=== PATIENT | male | born 1980 | race Hispanic/Latino ===

== ENCOUNTER 2020-08-20 18:58 | Emergency (ER) | payer SELFPAY ==
[~2020-08-20 18:58] MED LIST: Iopamidol 370 76% 100 ML VIAL ONE
[2020-08-20] MEDS ORDERED: Dexamethasone 10 MG/ML VIAL ONE (19:19)
[2020-08-20] MEDS ORDERED: Sodium Chloride 0.9% 1,000 ML ONE ×3 (19:19→22:33)
[2020-08-20] MEDS ORDERED: Ibuprofen 800 MG TAB ONE (19:19)
[2020-08-20] MEDS ORDERED: cefTRIAXone\\ROCEPHIN 2 GM VIAL ONE (19:29)
[2020-08-20] MEDS ORDERED: Sodium Chloride 0.9% 250 ML 250 ML ONE (19:29)
[2020-08-20] MEDS ORDERED: Enoxaparin Sodium 40 MG/0.4 ML SYRINGE ONE (19:29)
[2020-08-20] MEDS ORDERED: Azithromycin 500 MG VIAL ONE (19:29)
[2020-08-20] MEDS ORDERED: Sodium Chloride 0.9% 100 ML ONE (19:29)
[2020-08-20 19:35] LABS: #Basophils 0.2 thou/uL (0.0-0.2); #Eosinphils 0.1 thou/uL (0.0-0.7); #Lymphocytes 0.5 thou/uL (1.20-3.40); #Monocytes 0.7 thou/uL (0.11-0.59); #Neutrophils 17.4 thou/uL (1.40-6.50); %Basophils 0.8 % (0.0-1.0); %Eosinophils 0.3 % (0.0-10.0); %Lymphocytes 2.6 % (21.0-51.0); %Monocytes 3.6 % (0.0-10.0); %Neutrophils 92.7 % (42.0-75.0); Hemoglobin 14.9 g/dL (14.0-18.0); Mean Corpuscular HGB CONC 32.2 g/dL (32.0-36.0); Mean Corpuscular Hemoglobin 28.6 pg (27.0-31.0); Mean Corpuscular Volume 88.9 fL (78.0-98.0); Mean Platelet Volume 7.3 fL (7.4-10.4); Platelet Count 340 thou/uL (130-400); RBC Distribution Width 11.6 % (11.5-14.5); Red Blood Cell (RBC) Count 5.19 mill/uL (4.70-6.10); White Blood Cell (WBC) Count 18.7 thou/uL (4.8-10.8)
--- NOTE | 2020-08-20 19:44 | RAD ---
Portable frontal chest radiograph: 08/20/2020 COMPARISON: None HISTORY: Dyspnea FINDINGS: Extensive confluent interstitial and groundglass opacity noted in the right upper lobe, oralia ateral perihilar regions, and both lung bases. No pneumothorax or large volume pleural effusion. IMPRESSION: Extensive interstitial and groundglass alveolar opacity suspicious for Covid pneumonia.
[2020-08-20 19:48] LABS: ALT (SGPT) 98 U/L (8-55); AST (SGOT) 77 U/L (5-34); Albumin 3.4 g/dL (3.5-5.0); Alkaline Phosphatase 63 U/L (40-110); Anion Gap 14 mmol/L (10-20); BUN (Urea Nitrogen) 29 mg/dL (8.9-20.6); Bilirubin, Total 0.9 mg/dL (0.2-1.2); CK (CPK) 580 U/L (30-200); Calc. Creatinine Clearance 0 mL/min (70-130); Calcium 8.9 mg/dL (7.8-10.44); Carbon Dioxide 20 mmol/L (22-29); Chloride 102 mmol/L (98-107); Globulin 4.4 g/dL (2.4-3.5); Glucose 110 mg/dL (70-105); Potassium 4.3 mmol/L (3.5-5.1); Protein, Total 7.8 g/dL (6.0-8.3); Sodium 132 mmol/L (136-145)
[2020-08-20 20:26] LABS: Bilirubin Small (Negative); Blood, Urine Moderate (Negative); Clarity Clear (Clear); Glucose, Urine (Dipstick) Negative (Negative); Ketone, Urine Negative (Negative); Leukocyte Negative (Negative); Nitrite Negative (Negative); Protein, Urine (Dipstick) 100 mg/dL (Neg-Trace); Specific Gravity, Urine 1.025 (1.005-1.030)
[2020-08-20 20:32] LABS: Bacteria/HPF Rare-Few HPF (None Seen); Mucous/LPF 1+ LPF (<2+); Squamous Epithelial 0-3 HPF (0-3); WBC/HPF None Seen HPF (0-3)
--- NOTE | 2020-08-20 21:05 | CT ---
CT angiogram chest: 08/20/2020 COMPARISON: None HISTORY: Congestion, shortness of breath, elevated d-dimer, recent chest radiograph demonstrating fin dings concerning for Covid pneumonia TECHNIQUE: Axial CT imaging at 2.5 mm intervals through the chest with IV contrast using CT angiogram protocol. Coronal and sagittal 3-D reformatted imaging obtained. FINDINGS: No axillary lymphadenopathy. Motion artifact limits detailed assessment of the lung bases a nd upper abdomen as well as evaluation of the distal pulmonary arterial vasculature. The visualized upper abdomen demonstrates no acute findings. No significant pleural, pericardial, or mediastinal flu id. Mildly enlarged lymph nodes are noted in the AP window, prevascular space, subcarinal region, and right paratracheal region, presumably reactive in nature as there is extensive severe confluent g roundglass alveolar opacity throughout both lungs with a central and bibasilar predominance. These findings are suspicious for extensive bilateral Covid pneumonia. Evaluation of the distal pulmonary a rterial vasculature is limited. No evidence for a central pulmonary arterial embolism. No acute osseous abnormality. Mildly enlarged bilateral hilar lymph nodes are noted, right greater than left. IMPRESSION: Findings concerning for extensive bilateral Covid pneumonia. No evidence for central pulm onary arterial embolism.
[2020-08-20 21:28] LABS: Amphetamine Not Detected (NotDetected); Barbiturates Screen Not Detected (NotDetected); Benzodiazepine Screen Not Detected (NotDetected); Cocaine Metabolite Screen Not Detected (NotDetected); Medtox Control Line Valid? VALID (VALID); Methadone Not Detected (NotDetected); Methamphetamine Not Detected (NotDetected); Opiate Screen Not Detected (NotDetected); Oxycodone Screen Not Detected (NotDetected); Phencyclidine (PCP) Not Detected (NotDetected); THC/Cannabinoid Screen Not Detected (NotDetected); Tricyclic Screen Not Detected (NotDetected)
== END 2020-08-20 23:00 | disposition short-term general hospital (02) ==
LOC: MADERS 18:58
DX: U07.1 COVID-19 (principal); J12.82 Pneumonia due to coronavirus disease 2019
CPT/HCPCS: 36415; 71045; 71275; 80053; 80306; 81003; 81015; 82550; 83605; 83880; 84484; 85025; 85379; 87040; 94760; 96365; 96367; 96372; 96375; J0456; J0696; J1100; J1650; J3490; J7050; Q9967